=== PATIENT | male | born 1975 | race Caucasian/White ===

== ENCOUNTER 2017-05-20 18:07 | Emergency (ER) | payer OTHER ==
[~2017-05-20] VITALS: Ht 172.7 cm; Wt 64.9 kg
--- NOTE | 2017-05-20 19:44 | NUR ---
Patient discharged to home in stable conditon. Written and verbal after care instructions given. Patient verbalizes understanding of instructions.
== END 2017-05-20 19:45 | disposition home or self-care (01) ==
LOC: ER 18:08
DX: M79.652 Pain in left thigh (principal); M79.662 Pain in left lower leg
CPT/HCPCS: A4663